=== PATIENT | female | born 1990 | race Two or more races ===

== ENCOUNTER 2017-03-20 01:19 | Emergency (ER) | payer MEDICAID ==
[~2017-03-20] VITALS: Ht 175.3 cm; Wt 90.7 kg
[2017-03-20] MEDS ORDERED: HYDROmorphone HCL 2 MG/ML VL IV ONE ×2 (02:15→04:45)
[2017-03-20] MEDS ORDERED: SODIUM CHLORIDE 0.9% 1,000 ML IV ONE (02:15)
[2017-03-20] MEDS ORDERED: ONDANSETRON HCL 4 MG/2 ML VIAL IV ONE (02:15)
[2017-03-20 02:43] LABS: Basophils # (auto) 0.1 uL; Eosinophils # (auto) 0 uL; Eosinophils % (auto) 0.1 % (0.0-7.0); Hemoglobin 13.2 g/dL (12.2-16.2); Lymphocytes # (auto) 2.5 uL; Mean Corpuscular Volume 82.7 fL (80.0-100.0); Mean Platelet Volume 7.1 fL (6.9-10.8); Monocytes # (auto) 0.8 uL; Neutrophils % (auto) 79.1 % (37.0-80.0)
[2017-03-20 02:44] LABS: Basophils % (auto) 0.5 % (0.0-2.0); Hematocrit 39.9 % (36.0-46.0); Lymphocytes % (auto) 15.2 % (10.0-50.0); Mean Corpuscular Hemoglobin 27.4 pg (28.0-32.0); Mean Corpuscular Hgb Conc. 33.1 g/dL (32.0-36.0); Monocytes % (auto) 5.1 % (0.0-12.0); Neutrophils # (auto) 12.8 uL; Platelet Count (auto) 456 10^3/uL (140-450); Red Cell Distribution Width 17.2 % (11.8-14.3); White Blood Cell 16.2 10^3/uL (4.4-10.8)
[2017-03-20 02:48] LABS: Urine Bilirubin Negative (Negative); Urine Blood 1+ /uL (Negative); Urine Color Yellow (Yellow); Urine Glucose 1+ mg/dL (Normal); Urine Ketone 1+ (Negative); Urine Nitrite Negative (Negative); Urine RBC 4 /hpf (0 - 4); Urine Squamous Epithelial Cell FEW /hpf (<5); Urine Urobilinogen Normal (Negative); Urine pH 8.5 (5.0-8.0)
[2017-03-20 03:17] LABS: Albumin 4.1 g/dL (3.4-5.0); BUN/Creatinine Ratio 6.3; Potassium 3.3 mmol/L (3.5-5.1)
[2017-03-20 03:20] LABS: Bilirubin, Total 0.5 mg/dL (0.2-1.0); Total Protein 8.5 g/dL (6.4-8.2)
[2017-03-20 03:34] VITALS: BP 112/62
== END 2017-03-20 06:07 | disposition home or self-care (01) ==
LOC: EDBD 01:19 → ER 01:29
DX: K80.20 Calculus of gallbladder without cholecystitis without obstruction (principal); K76.0 Fatty (change of) liver, not elsewhere classified; D72.829 Elevated white blood cell count, unspecified
CPT/HCPCS: 36415; 76705; 80053; 81001; 82150; 83690; 84702; 85025; 96361; 96374; 96375; 96376; 99285; J1170; J2405; J7030

== ENCOUNTER 2018-08-24 11:15 | Observation (INO) | payer MEDICAID ==
[~2018-08-24] VITALS: Ht 167.6 cm; Wt 87.5 kg
[2018-08-24] MEDS ORDERED: PREN-145 OR (11:41)
[2018-08-24] MEDS ORDERED: BETAMETHASONE ACET (6MG/ML) 5ML VIAL IM ONE (11:45)
== END 2018-08-24 12:40 | disposition home or self-care (01) | DRG 563 ==
LOC: LDRP 11:15
PROVIDERS: ADMIT Obstetrics & Gynecology; ATTEND Obstetrics & Gynecology
DX: O60.03 Preterm labor without delivery, third trimester (principal); Z3A.30 30 weeks gestation of pregnancy
CPT/HCPCS: 59025; 81002; 96372; G0378; J0702

== ENCOUNTER 2018-08-25 14:15 | Observation (INO) | payer MEDICAID ==
[~2018-08-25 14:15] MED LIST: PREN-145 OR
[2018-08-25] MEDS ORDERED: BETAMETHASONE ACET (6MG/ML) 5ML VIAL IM ONE (14:45)
== END 2018-08-25 15:05 | disposition home or self-care (01) | DRG 563 ==
LOC: LDRP 14:15
PROVIDERS: ADMIT Obstetrics & Gynecology; ATTEND Obstetrics & Gynecology
DX: O60.03 Preterm labor without delivery, third trimester (principal); Z3A.30 30 weeks gestation of pregnancy
CPT/HCPCS: 59025; 81002; 96372; G0378; J0702

== ENCOUNTER 2018-09-26 09:58 | Observation (INO) | payer MEDICAID ==
[~2018-09-26] VITALS: Ht 167.6 cm; Wt 87.5 kg
[2018-09-26] MEDS ORDERED: NIF10C GT (10:34)
[2018-09-26] MEDS ORDERED: LACTATED RINGER'S 1,000 ML IV ONE (10:39)
[2018-09-26] MEDS ORDERED: NIFEdipine 10 MG CAP PO ONE (10:45)
== END 2018-09-26 12:25 | disposition home or self-care (01) | DRG 566 ==
LOC: LDRP 09:58
PROVIDERS: ADMIT Specialist; ATTEND Specialist
DX: O26.893 Other specified pregnancy related conditions, third trimester (principal); H53.9 Unspecified visual disturbance; R10.9 Unspecified abdominal pain; O21.2 Late vomiting of pregnancy; Z3A.35 35 weeks gestation of pregnancy; Z87.891 Personal history of nicotine dependence
CPT/HCPCS: 59025; 81002; 96360; G0378; 96361

== ENCOUNTER 2018-10-13 05:39 | Observation (INO) | payer MEDICAID ==
[~2018-10-13] VITALS: Ht 167.6 cm; Wt 90.3 kg
[~2018-10-13 05:39] MED LIST changes: +NIF10C GT
== END 2018-10-13 06:30 | disposition home or self-care (01) | DRG 566 ==
LOC: LDRP 05:39
PROVIDERS: ADMIT Obstetrics & Gynecology; ATTEND Obstetrics & Gynecology
DX: O62.9 Abnormality of forces of labor, unspecified (principal); Z3A.37 37 weeks gestation of pregnancy
CPT/HCPCS: 59025; 81002; G0378